=== PATIENT | male | born 1945 | race Caucasian/White ===

== ENCOUNTER 2017-11-10 16:34 | Outpatient (CLI) | payer BC ==
[2017-11-10 17:04] LABS: Hemoglobin 14.7 g/dL (14.0-18.0); Mean Corpuscular HGB CONC 34.5 g/dL (32.0-36.0); Mean Corpuscular Hemoglobin 30.6 pg (27.0-31.0); Mean Corpuscular Volume 88.9 fL (78.0-98.0); Mean Platelet Volume 6.6 fL (7.4-10.4); Platelet Count 187 thou/uL (130-400); RBC Distribution Width 11.5 % (11.5-14.5); Red Blood Cell (RBC) Count 4.81 mill/uL (4.70-6.10); White Blood Cell (WBC) Count 6.9 thou/uL (4.8-10.8)
[2017-11-10 17:10] LABS: INR-International Normal Ratio 1.2; PTT 37.7 SEC (22.9-36.1); Prothrombin Time 14.8 SEC (12.0-14.7)
[2017-11-10 17:22] LABS: Anion Gap 10 mmol/L (10-20); BUN (Urea Nitrogen) 19 mg/dL (8.4-25.7); Calc. Creatinine Clearance 0 mL/min (70-130); Calcium 9.1 mg/dL (7.8-10.44); Carbon Dioxide 29 mmol/L (23-31); Chloride 104 mmol/L (98-107); Estimated GFR-MDRD 62; Glucose 103 mg/dL (83-110); Potassium 4.5 mmol/L (3.5-5.1); Sodium 138 mmol/L (136-145)
[2017-11-13 15:22] LABS: ALT (SGPT) 44 U/L (8-55); AST (SGOT) 36 U/L (5-34); Albumin 4.2 g/dL (3.4-4.8); Alkaline Phosphatase 94 U/L (40-150); Bilirubin, Total 2.3 mg/dL (0.2-1.2); Globulin 3.1 g/dL (2.4-3.5); Protein, Total 7.3 g/dL (5.8-8.1)
== END 2017-11-10 16:35 | disposition home or self-care (01) ==
LOC: LABBT 16:34
PROVIDERS: ATTEND Internal Medicine Cardiovascular Disease
DX: Z01.818 Encounter for other preprocedural examination (principal); I47.2 Ventricular tachycardia
CPT/HCPCS: 80048; 80053; 85027; 85610; 85730; 93005; 93010

== ENCOUNTER → 2017-11-14 | Day surgery (SDC) | payer BC ==
[2017-11-10 17:11] VITALS: BMI 24.0
[~2017-11-14] MED LIST: Diazepam 5 MG TAB ONE; Heparin 10,000 UNITS/1 ML VIAL ONE; Iopamidol 370 76% 100 ML VIAL ONE; Lidocaine 1% (PF) 30 ML VIAL ONE; Nitroglycerin 100MG/250ML BOT 250 ML ONE; Verapamil 5 MG/2 ML VIAL ONE
== END ==
LOC: CCL 06:25
PROVIDERS: ATTEND Internal Medicine Cardiovascular Disease
PROC: 4A023N7 Measurement of Cardiac Sampling and Pressure, Left Heart, Percutaneous Approach (ICD-10-PCS; principal; 2017-11-14)
PROC: B2111ZZ Fluoroscopy of Multiple Coronary Arteries using Low Osmolar Contrast (ICD-10-PCS; principal; 2017-11-14)
DX: I25.10 Atherosclerotic heart disease of native coronary artery without angina pectoris (principal); I47.2 Ventricular tachycardia; I48.0 Paroxysmal atrial fibrillation; Z79.82 Long term (current) use of aspirin; Z79.01 Long term (current) use of anticoagulants; Z79.899 Other long term (current) drug therapy
CPT/HCPCS: 93458; C1769; J1644; J2001

== ENCOUNTER 2018-03-15 15:06 | Outpatient (CLI) | payer BC ==
--- NOTE | 2018-03-15 15:33 | ULT ---
SOFT TISSUE NECK ULTRASOUND: HISTORY: Right neck mass. COMPARISON: None. TECHNIQUE: Targeted sonographic imaging of a palpable right neck mass is performed. FINDINGS: There is evidence of solid echotexture mass with vascular flow, measuring 1.9 x 4.2 x 2.9 cm. An enl arged, possibly partially necrotic lymph node is suspected. Evaluation is limited and incomplete. P ostcontrast neck CT is recommended. IMPRESSION: Palpable soft tissue neck lymph node. Postcontrast soft tissue neck CT is recommended to evaluate th e aerodigestive tract and to assess for possible other enlarged lymph nodes. POS: KEVIN
== END 2018-03-15 15:07 | disposition home or self-care (01) ==
LOC: BICULT 15:06
PROVIDERS: ATTEND Nurse Practitioner Family
DX: R22.1 Localized swelling, mass and lump, neck (principal)
CPT/HCPCS: 76536

== ENCOUNTER 2018-04-16 07:23 | Outpatient (CLI) | payer BC, MEDICARE ==
--- NOTE | 2018-04-16 11:01 | CT ---
CT OF THE NECK: DATE: 04/16/2018. HISTORY: Persistent lymphadenopathy in the right neck. TECHNIQUE: Axial CT imaging at 2.5 mm intervals from the skull base through the lung apices with IV contrast. C oronal and sagittal reformatted imaging obtained. FINDINGS: Imaged brain parenchyma grossly unremarkable. The retroantral fat and the parapharyngeal fat appears clear bilaterally. The imaged lung apices appear grossly unremarkable. The retroantral fat and the parapharyngeal fat appears clear bilaterally. There is mild mucosal thic kening involving he posterior aspect of the right maxillary sinus. Streak artifact from dental amalgam limits detailed assessment of the oral cavity. The submandibular glands and the parotid glands appear unremarkable. Enlarged posterior triangle lymph nodes are noted on the right measuring up to 1 cm with central hypo density suggesting necrotic malignant adenopathy. There is an abnormal enlarged node within level II A on the right best seen on axial image 35 measuring 2.1 cm in short axis dimension inseparable from the adjacent sternocleidomastoid muscle. Along its inferior margin, there is hypodensity best seen o n image 44 suggesting necrotic adenopathy in this region as well. There is an additional abnormal no de posterior to the sternocleidomastoid muscle on the right and anterior to the internal jugular vein measuring 9 mm best seen on image 54 at the axial level of the cricoid cartilage. NO definite adeno kenny is seen on the left. The tonsillar pillars, epiglottis, and preepiglottic fat and hyoid bone appear unremarkable. There is a soft tissue mass with epicenter at axial level of cricoid cartilage located to the right o f midline measuring at least 3.4 cm in AP dimension and approximately 2.6 cm in transverse dimension. This involves the periglottic fat on the right and is seen to above the medial aspect of the tech intern ior aspect of the right thyroid cartilage. This lesion abuts the anterior, posterior, and lateral as pect of the cricoid cartilage on the right as well. It also extends along the posterior and just lat eral to the posterior aspect of the right thyroid cartilage. This mass appears to extend below the a xial level of the cricoid cartilage on image 59 and its superior extent involves the region of the pi riform sinus on the right. There is associated slight deviation of the right false cord medially. T his is highly suspicious for squamous cell carcinoma. The vascular structures of the neck appear patent. Osseous structures demonstrate degenerative change at the atlantoaxial interspace as well as the C5-6 and C6-7 levels. No worrisome lytic or blastic bone lesion. IMPRESSION: Soft tissue mass on the right involving the region of the piriform sinus, periglottic fat, and soft t issues about the right aspect of the cricoid cartilage and thyroid cartilage extending below the axia l level of the cricoid cartilage posteriorly suggesting extensive squamous cell carcinoma, measuremen ts estimated at 3.4 cm AP dimension, 2.7 cm transverse dimension, and 4.7 cm craniocaudal dimension. Multiple enlarged nodes within the neck on the right, some of which demonstrate necrosis consistent with right-sided metastatic neck adenopathy. CODE T POS: KEVIN
[2018-04-16] MEDS ORDERED: Iopamidol 370 76% 100 ML VIAL ONE (11:17)
== END 2018-04-16 07:24 | disposition home or self-care (01) ==
LOC: CT 07:23
PROVIDERS: ATTEND Internal Medicine Geriatric Medicine
DX: R22.1 Localized swelling, mass and lump, neck (principal)
CPT/HCPCS: 70491

== ENCOUNTER 2018-04-26 11:18 | Outpatient (CLI) | payer MEDICARE, BC ==
--- NOTE | 2018-04-26 14:57 | PET ---
NUCLEAR MEDICINE FDG PET CT: (Positron Emission Tomography) DATE: 04/26/2018. HISTORY: A 73-year-old male with head and neck cancer for initial staging. 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 Initial staging. COMPARISON: No prior PET scans. TECHNIQUE: IV injection F-18 Fluorodeoxyglucose (FDG) dose: 11.8 mCi. PET and attenuation-correction CT performed from upper head to proximal thighs. Close-up PET-CT fusio n images of head and neck. Standard PET-CT fusion images of the rest of the body. FINDINGS: SUV (standard uptake value) numbers given are maximum SUV's: QCLR used to obtain SUV. The SUVs obtai hola from the neck pathology are obtained from the close-up images of the neck (different SUV measurem ents are obtained for the neck lesions if the whole body PET scan images are used. The large mass in the right hypopharynx, involving right piriform sinus, right posterior pharyngeal w all, and right post-cricoid region, has very high uptake, with SUV of 12.8. The very large right level IIA malignant lymph node: SUV 13.6. Directly posterior to that, there are 2 much smaller, mildly enlarged necrotic retrojugular level II lymph nodes. The more anterior one: SUV 5.1. The more posterior one SUV 4.1. More inferiorly, abutting the anterior surface of the right internal jugular vein, abutting medial as pect of right sternocleidomastoid muscle, and abutting the lateral aspect of the main tumor mass, a r ight level II lymph node: SUV 7.6. There is no abnormal hypermetabolic activity in the abdominal cavity, thoracic cavity, or pelvic cavi ty. TNM staging: The primary tumor is approximately 3.5 x 2.5 cm on the axial images, but the craniocaudal dimension i s slightly greater than 4.5 cm. It has grown outside of the hypopharynx, and it involves the right ph aryngeal constrictor muscles and possibly cricopharyngeus muscle: T4a. More than one right-sided pathological lymph node: N2. No distant metastasis: M0. IMPRESSION: 1. 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 2. Stage LULY: T4a, N2, M0. JN R POS: KEVIN
== END 2018-04-26 11:19 | disposition home or self-care (01) ==
LOC: PET 11:18
PROVIDERS: ATTEND Internal Medicine Medical Oncology
DX: C76.0 Malignant neoplasm of head, face and neck (principal); C13.9 Malignant neoplasm of hypopharynx, unspecified; C77.0 Secondary and unspecified malignant neoplasm of lymph nodes of head, face and neck
CPT/HCPCS: 78815; A9552

== ENCOUNTER 2018-05-14 10:26 | Observation (INO) | payer BC, MEDICARE ==
[2018-05-14] MEDS ORDERED: Promethazine HCl 25 MG/ML VIAL SLOW IVP PRN (12:24)
[2018-05-14] MEDS ORDERED: Ondansetron HCl/PF 4 MG/2 ML Vial IVP PRN (12:24)
[2018-05-14] MEDS ORDERED: Promethazine HCl 25 MG/ML VIAL IM PRN (12:24)
--- NOTE | 2018-05-14 13:55 | OP ---
DATE OF PROCEDURE: 05/14/2018 PREOPERATIVE DIAGNOSES: 1. Oropharyngeal dysphagia. 2. Head and neck cancer. DESCRIPTION OF PROCEDURE: Forward viewing endoscope was inserted into esophagus under direct visualization with ease and passed to the second portion of the duodenum with ease. Second portion duodenum and duodenal bulb were normal. The pylorus, antrum, body, fundus, and cardia were normal. Retroflexion in stomach was normal. In the proximal esophagus, changes were noted secondary to his head and neck cancer with partial obstruction. Area was prepped and draped in the usual manner. Anesthesia was applied with 1% lidocaine without epinephrine. A needle was inserted through the abdominal wall and a guidewire was passed. The guidewire was passed, snared, and brought out of the mouth. The PEG tube was attached and brought through the abdominal wall after small incision was made. Re-insertion of the endoscope showed the PEG bumper to be in good position. ASSESSMENT: 1. Successful percutaneous endoscopic gastrostomy. 2. Partial obstruction at the proximal esophagus secondary to head and neck cancer. RECOMMENDATIONS: 1. Admit for 23 hour observation. 2. Begin tube feedings in 8 hours. Job ID: [id number]
[2018-05-14] MEDS ORDERED: Melatonin 3 MG TAB PO PRN (14:47)
[2018-05-14] MEDS ORDERED: risperiDONE 0.25 MG TAB PO PRN (14:53)
[2018-05-14] MEDS ORDERED: traMADol HCl 50 MG TAB PER TUBE PRN (14:55)
[2018-05-14] MEDS: Sodium Chloride 0.9% 1,000 ML IV SCH (15:11)
[2018-05-14 16:09] VITALS: BMI 24.3
[2018-05-14] MEDS ORDERED: Lidocaine 1% PF 5 ML VIAL ONE (16:47)
[2018-05-14] MEDS ORDERED: PROPOFOL 200 MG/20 ML VIAL ONE (16:47)
[2018-05-14] MEDS: Famotidine 20 MG TAB PO SCH (20:51)
[2018-05-14] MEDS ORDERED: risperiDONE 1 MG TAB PO SCH (21:00)
[2018-05-15] MEDS: Sodium Chloride 0.9% 1,000 ML IV SCH (04:39)
[2018-05-15] MEDS: Famotidine 20 MG TAB PO SCH (08:01)
[2018-05-15] MEDS ORDERED: risperiDONE 0.25 MG TAB PO SCH (09:00)
[2018-05-15] MEDS ORDERED: Rosuvastatin 5 MG TAB PO SCH (09:00)
[2018-05-15] MEDS ORDERED: Apixaban 5 MG TAB PO SCH (09:00)
[2018-05-15] MEDS ORDERED: Vit A,C & E/Lutein/Minerals Tablet PO SCH (09:00)
[2018-05-15 11:28] VITALS: BP 123/68; TEMP 98.4
== END 2018-05-15 13:11 | disposition home or self-care (01) ==
LOC: SDC 10:26 → T4-B 14:25
PROVIDERS: ADMIT Internal Medicine Gastroenterology; ATTEND Internal Medicine Gastroenterology
PROC: 0DH63UZ Insertion of Feeding Device into Stomach, Percutaneous Approach (ICD-10-PCS; principal; 2018-05-15)
DX: C76.0 Malignant neoplasm of head, face and neck (principal); K22.2 Esophageal obstruction; Z79.01 Long term (current) use of anticoagulants; Z79.899 Other long term (current) drug therapy
CPT/HCPCS: 96360; 96361; G0378; J2001; J2704

== ENCOUNTER 2018-08-28 11:15 | Outpatient (CLI) | payer BC, MEDICARE ==
--- NOTE | 2018-08-28 18:38 | PET ---
PET CT: 08/28/18 HISTORY: 73-year-old male with head and neck cancer. 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 Patient is status post chemo and radiation therapy on July 2018. Exam is requested for restaging. TECHNIQUE: PET scan with CT attenuation was performed from the vertex through the proximal thighs following intr avenous administration of 11.7 millicuries of [id number] in the right antecubital fossa. COMPARISON: 04/26/18. FINDINGS: Abnormal area of tracer localization noted on the previous exam have resolved in the interim. No hypermetabolic mass or lymph node is seen in the head or neck. There is a hypermetabolic lymph node in the AP window of the mediastinum with an SUV of 3. No hypermetabolic hilar, axillary, abdominal pelvic, or inguinal lymph nodes are seen. No hypermetabo lic pulmonary nodules, liver, adrenal, or skeletal lesions are seen. There is physiologic activity in the GI and tracts and the brain. The CT scan used for attenuation correction demonstrates no evidence of pleural effusions or ascites. IMPRESSION: 1. Interval resolution of previously noted lesions since 04/26/18. 2. Interval development of a new hypermetabolic mediastinal lymph node (A-P window). POS: KEVIN
== END 2018-08-28 11:16 | disposition home or self-care (01) ==
LOC: PET 11:15
PROVIDERS: ATTEND Internal Medicine Hematology & Oncology
DX: C76.0 Malignant neoplasm of head, face and neck (principal); R59.0 Localized enlarged lymph nodes
CPT/HCPCS: 78815; A9552

== ENCOUNTER 2018-12-24 07:29 | Outpatient (CLI) | payer BC, MEDICARE ==
--- NOTE | 2018-12-24 08:41 | CT ---
CT Chest W Con: 12/24/2018 12:00 AM CLINICAL INDICATION: History of hypopharyngeal cancer. COMPARISON: PET/CT dated August 28, 2018 and April 26, 2018. FINDINGS: Lung and Large Airways: There are persistent areas of tree-in-bud type nodularity involving the lingu la. This is slightly more pronounced than on the recent PET/CT dated 08/20/2018 but appear appears similar to a comparison dated April 26, 2018. There are areas of subsegmental volume loss involving both lower lobes. There is a tiny sub-4 mm, subpleural pulmonary nodule involving the right lung apex on image 13 of series 3. Pleura: No effusion or mass. Vessels: There are prominent coronary artery calcifications. Heart: Normal appearing. No pericardial effusion.. Mediastinum and Teresa: No pathologically enlarged mediastinal or hilar lymph node is evident. No abnor ld sized lymph node is seen within the region of the AP window. Some of the increased activity that was noted within this region on the prior PET/CT may related to misregistration from vascular ba ckground activity. Chest Wall and Lower Neck: Normal. Upper Abdomen: The gallbladder is surgically absent. There are calcified granuloma within the spleen. The adrenal glands are normal appearing. Bones: No acute fracture or subluxation demonstrated. There is scattered degenerative and osteoarthri tic change present. IMPRESSION: Persistent region of tree-in-bud type nodularity involving the lingula. This appears similar to a com parison in April 2018 and is suspicious for bronchiolitis of infectious or inflammatory etiology. Would recommend follow-up CT in 6-8 weeks to document stability or clearance. Previously seen hypermetabolic mediastinal lymph node in the AP window is not [facility]. This activity may have reflected misregistration of radiotracer from vascular background activity. Follow-up examination in 6-8 weeks to reevaluate for mediastinal lymphadenopathy is recommended as a conservative measure.
--- NOTE | 2018-12-24 09:05 | CT ---
NECK CT WITH IV CONTRAST: DATE: 12/24/2018. COMPARISON: PET CT 08/28/2018, neck CT with IV contrast 04/16/2018. HISTORY: Hypopharyngeal carcinoma. TECHNIQUE: Axial CT imaging obtained at 3 mm intervals from skull base through lung apices with IV contrast. Cor onal and sagittal reformatted imaging obtained. FINDINGS: Visualized brain parenchyma grossly unremarkable. The retroantral fat and parapharyngeal fat is clear bilaterally. The parotid glands and the submandibular glands appear unremarkable. Tonsillar pillars appear grossly unremarkable. The epiglottis and the preepiglottic fat demonstrates no mass lesion. There is mild stranding of the preepiglottic fat which is likely on the basis of prior treatment. The hyoid bone, thyroid cartilage and cricoid cartilage demonstrate no evidence for destruction. The thyroid gland is grossly unremarkable. The lobulated soft tissue mass noted on prior imaging centered at the axial level of the cricoid cart ilage interposed between the right aspect of the thyroid cartilage and cricoid cartilage, best seen on the 04/16/2018 exam, cannot be discretely visualized on this study. There is no discrete measurable mass lesion in this region on today's exam. There is mild medialization of the right vocal cord, as seen on the 08/28/[address] There is mild increased density and fullness in the region of the pi riform sinus on the right with no discrete mass lesion suggesting possible edema on the basis of prior treatment. No discrete lymphadenopathy is apparent on this examination within the neck. There is mild diffuse in creased density within the subcutaneous fat of the neck on the right, likely on the basis of prior treatment. There is subtle soft tissue density posterior to the superior aspect of the submandibular gland on th e right, best seen on axial image 23, measuring approximately 9 mm in transverse dimension, suggesting a treated metastatic lymph node. Review of the osseous structures demonstrates no worrisome lytic or blastic lesion. IMPRESSION: Posttreatment changes on the right. No discrete mass lesion is noted on this examination and no enlar ged lymph nodes are seen. Continued follow-up advised. Transcribed Date/Time: 12/24/2018 10:22 AM
[2018-12-24] MEDS ORDERED: ISOVUE-370 76%-LOCM 1 ML ONE (12:58)
== END 2018-12-24 07:30 | disposition home or self-care (01) ==
LOC: BICCT 07:29
PROVIDERS: ATTEND Internal Medicine Hematology & Oncology
DX: C13.8 Malignant neoplasm of overlapping sites of hypopharynx (principal); R91.8 Other nonspecific abnormal finding of lung field
CPT/HCPCS: 70491; 71260; 82565; Q9966

== ENCOUNTER 2023-01-12 08:26 | Outpatient (CLI) | payer MEDICARE | END 2023-01-12 08:27 | disposition home or self-care (01) | LOC: NM 08:26 | PROVIDERS: ATTEND Psychiatry & Neurology Neurology | DX: F02.80 Dementia in other diseases classified elsewhere, unspecified severity, without behavioral disturbance, psychotic disturbance, mood disturbance, and anxiety (principal); R90.82 White matter disease, unspecified; H74.8X3 Other specified disorders of middle ear and mastoid, bilateral; H74.8X1 Other specified disorders of right middle ear and mastoid; G93.89 Other specified disorders of brain | CPT/HCPCS: 70551; 78803; A9584 ×2 ==

== ENCOUNTER 2024-01-04 13:17 | Outpatient (CLI) | payer MEDICARE | END 2024-01-04 13:18 | disposition home or self-care (01) | LOC: CT 13:17 | PROVIDERS: ATTEND Psychiatry & Neurology Neurology | DX: G93.89 Other specified disorders of brain (principal); G31.9 Degenerative disease of nervous system, unspecified; I67.82 Cerebral ischemia; R90.89 Other abnormal findings on diagnostic imaging of central nervous system; J34.89 Other specified disorders of nose and nasal sinuses; I99.8 Other disorder of circulatory system | CPT/HCPCS: 70450 ==

== ENCOUNTER 2024-11-01 18:27 | Inpatient (IN) | payer MEDICARE ==
[2024-11-01 19:12] LABS: #Basophils 0.05 10x3/uL (0.0-0.2); #Eosinophils 0.05 10x3/uL (0.0-0.7); #Monocytes 0.92 10x3/uL (0.11-0.59); #Neutrophils 10.93 10x3/uL (1.40-6.50); %Basophils 0.4 % (0.0-1.0); %Eosinophils 0.4 % (0.0-10.0); %Lymphocytes 10.7 % (21.0-51.0); %Monocytes 6.9 % (0.0-10.0); %Neutrophils 81.3 % (42.0-75.0); Hematocrit 39.2 % (42.0-52.0); Hemoglobin 13.2 g/dL (14.0-18.0); Mean Corpuscular Hemoglobin 30.5 pg (27.0-31.0); Mean Corpuscular Volume 90.5 fL (78.0-98.0); Platelet Count 519 10x3/uL (130-400); Red Blood Cell (RBC) Count 4.33 mill/uL (4.70-6.10); White Blood Cell (WBC) Count 13.42 10x3/uL (4.8-10.8)
[2024-11-01 19:35] LABS: ALT (SGPT) 190 U/L (Less than 45); AST (SGOT) 160 U/L (11-34); Albumin 3.2 g/dL (3.1-4.5); Alkaline Phosphatase 215 U/L (40-110); Anion Gap 21 mmol/L (10-20); BUN (Urea Nitrogen) 14 mg/dL (8.4-25.7); Bilirubin, Total 0.7 mg/dL (0.3-1.2); Calc. Creatinine Clearance 0 mL/min (70-130); Calcium 8.6 mg/dL (7.8-10.44); Carbon Dioxide 19 mmol/L (23-31); Chloride 101 mmol/L (98-107); Globulin 4.4 g/dL (2.4-3.5); Glucose 113 mg/dL (83-110); Lipase 22 U/L (8-78); Magnesium 1.9 mg/dL (1.6-2.6); Potassium 4.3 mmol/L (3.5-5.1); Sodium 137 mmol/L (136-145)
[2024-11-01 19:43] LABS: Troponin I Less than 0.010 ng/mL (< 0.028)
[2024-11-01 22:51] LABS: Bacteria/HPF None Seen HPF (None Seen); CAUTI Indications for Culture Alt mental st,lethar; Glucose, Urine (Dipstick) Normal (Negative); Leukocyte Negative Leu/uL (Negative); Protein, Urine (Dipstick) 10 mg/dL (Neg-Trace); RBC/HPF 0-3 HPF (0-3); Specific Gravity, Urine 1.018 (1.002-1.036); WBC/HPF 0-3 HPF (0-3)
[2024-11-01 22:52] LABS: Urine Culture Reflex No No
[2024-11-01] MEDS ORDERED: Senokot S 8.6-50 MG TAB PO PRN (23:29)
[2024-11-01] MEDS ORDERED: Calcium Carbonate 500 MG ChewTAB PO PRN (23:29)
[2024-11-01] MEDS ORDERED: Ondansetron PF 4 MG/2 ML Vial IVP PRN (23:29)
[2024-11-01] MEDS ORDERED: Acetaminophen 325 MG TAB PO PRN (23:29)
[2024-11-01] MEDS ORDERED: Electrolyte Replacement Protocol 1 EACH FS SCH (23:30)
[2024-11-02] MEDS ORDERED: risperiDONE 1 MG TAB ONE (01:00)
[2024-11-02] MEDS: risperiDONE 1 MG TAB PO SCH ×2 (01:07→20:33)
[2024-11-02] MEDS: QUEtiapine 100 MG TAB PO SCH (01:36)
[2024-11-02] MEDS ORDERED: Digoxin 0.5 MG/2 ML AMP ONE ×2 (01:54→03:02)
[2024-11-02] MEDS: Digoxin 0.5 MG/2 ML AMP SLOW IVP SCH ×2 (02:06→03:10)
[2024-11-02 04:02] LABS: #Basophils 0.03 10x3/uL (0.0-0.2); #Eosinophils 0.05 10x3/uL (0.0-0.7); #Monocytes 0.96 10x3/uL (0.11-0.59); #Neutrophils 9.69 10x3/uL (1.40-6.50); %Basophils 0.2 % (0.0-1.0); %Eosinophils 0.4 % (0.0-10.0); %Lymphocytes 11.4 % (21.0-51.0); %Monocytes 7.9 % (0.0-10.0); %Neutrophils 79.6 % (42.0-75.0); Hematocrit 36.8 % (42.0-52.0); Hemoglobin 12.5 g/dL (14.0-18.0); Mean Corpuscular Hemoglobin 30.5 pg (27.0-31.0); Mean Corpuscular Volume 89.8 fL (78.0-98.0); Platelet Count 359 10x3/uL (130-400); Red Blood Cell (RBC) Count 4.10 mill/uL (4.70-6.10); White Blood Cell (WBC) Count 12.18 10x3/uL (4.8-10.8)
[2024-11-02 04:17] LABS: ALT (SGPT) 155 U/L (Less than 45); AST (SGOT) 105 U/L (11-34); Albumin 2.9 g/dL (3.1-4.5); Alkaline Phosphatase 197 U/L (40-110); Anion Gap 16 mmol/L (10-20); BUN (Urea Nitrogen) 14 mg/dL (8.4-25.7); Bilirubin, Total 0.9 mg/dL (0.3-1.2); CK (CPK) 74 U/L (30-200); Calc. Creatinine Clearance 92 mL/min (70-130); Calcium 8.3 mg/dL (7.8-10.44); Carbon Dioxide 24 mmol/L (23-31); Cardiac Risk 4.0 (Less than 4.5); Chloride 104 mmol/L (98-107); Cholesterol 95 mg/dl (< 200 Desired); Globulin 4.1 g/dL (2.4-3.5); Glucose 123 mg/dL (83-110); HDL Cholesterol 24 mg/dL (>60 Neg Risk); LDL Cholesterol, Calculated 54 mg/dL; Magnesium 2.0 mg/dL (1.6-2.6); Potassium 4.2 mmol/L (3.5-5.1); Sodium 140 mmol/L (136-145); Triglycerides 87 mg/dL (Less than 150)
[2024-11-02] MEDS ORDERED: risperiDONE 1 MG TAB PO SCH (09:00)
[2024-11-02] MEDS ORDERED: Aspirin Chewable 81 MG TAB ONE (09:03)
[2024-11-02] MEDS ORDERED: Apixaban 5 MG TAB ONE (09:03)
[2024-11-02] MEDS ORDERED: Magnesium 2 GM/50 ML BAG (IN WATER) ONE (09:03)
[2024-11-02] MEDS: Aspirin 81 mg Enteric Coated Tablet PO SCH (09:09)
[2024-11-02] MEDS: Apixaban 5 MG TAB PO SCH (09:09)
[2024-11-02] MEDS: Metoprolol Succinate XL 50 MG ER.TAB PO SCH (09:09)
[2024-11-02] MEDS: Magnesium 2 GM/50 ML(in water) 2 GM in Premix 1 BAG IVPB SCH (09:09)
[2024-11-02 18:46] VITALS: BMI 21.2
[2024-11-02] MEDS ORDERED: QUEtiapine 100 MG TAB PO SCH (21:00)
[2024-11-03 04:03] LABS: #Basophils 0.03 10x3/uL (0.0-0.2); #Eosinophils 0.14 10x3/uL (0.0-0.7); #Monocytes 0.95 10x3/uL (0.11-0.59); #Neutrophils 9.29 10x3/uL (1.40-6.50); %Basophils 0.3 % (0.0-1.0); %Eosinophils 1.2 % (0.0-10.0); %Lymphocytes 10.2 % (21.0-51.0); %Monocytes 8.2 % (0.0-10.0); %Neutrophils 79.7 % (42.0-75.0); Hematocrit 34.9 % (42.0-52.0); Hemoglobin 11.7 g/dL (14.0-18.0); Mean Corpuscular Hemoglobin 30.8 pg (27.0-31.0); Mean Corpuscular Volume 91.8 fL (78.0-98.0); Platelet Count 372 10x3/uL (130-400); Red Blood Cell (RBC) Count 3.80 mill/uL (4.70-6.10); White Blood Cell (WBC) Count 11.65 10x3/uL (4.8-10.8)
[2024-11-03 04:21] LABS: ALT (SGPT) 130 U/L (Less than 45); AST (SGOT) 84 U/L (11-34); Albumin 2.6 g/dL (3.1-4.5); Alkaline Phosphatase 180 U/L (40-110); Anion Gap 14 mmol/L (10-20); BUN (Urea Nitrogen) 10 mg/dL (8.4-25.7); Bilirubin, Total 0.8 mg/dL (0.3-1.2); Calc. Creatinine Clearance 79 mL/min (70-130); Calcium 7.9 mg/dL (7.8-10.44); Carbon Dioxide 25 mmol/L (23-31); Chloride 104 mmol/L (98-107); Globulin 3.8 g/dL (2.4-3.5); Glucose 123 mg/dL (83-110); Magnesium 2.0 mg/dL (1.6-2.6); Potassium 4.2 mmol/L (3.5-5.1); Sodium 139 mmol/L (136-145)
[2024-11-03] MEDS: Magnesium 2 GM/50 ML(in water) 2 GM in Premix 1 BAG IVPB SCH (11:45)
[2024-11-04 04:39] LABS: #Basophils 0.03 10x3/uL (0.0-0.2); #Eosinophils 0.20 10x3/uL (0.0-0.7); #Monocytes 0.78 10x3/uL (0.11-0.59); #Neutrophils 6.95 10x3/uL (1.40-6.50); %Basophils 0.3 % (0.0-1.0); %Eosinophils 2.2 % (0.0-10.0); %Lymphocytes 10.4 % (21.0-51.0); %Monocytes 8.7 % (0.0-10.0); %Neutrophils 78.0 % (42.0-75.0); Hematocrit 32.1 % (42.0-52.0); Hemoglobin 10.7 g/dL (14.0-18.0); Mean Corpuscular Hemoglobin 30.6 pg (27.0-31.0); Mean Corpuscular Volume 91.7 fL (78.0-98.0); Platelet Count 359 10x3/uL (130-400); Red Blood Cell (RBC) Count 3.50 mill/uL (4.70-6.10); White Blood Cell (WBC) Count 8.93 10x3/uL (4.8-10.8)
[2024-11-04 04:53] LABS: ALT (SGPT) 125 U/L (Less than 45); AST (SGOT) 87 U/L (11-34); Albumin 2.5 g/dL (3.1-4.5); Alkaline Phosphatase 169 U/L (40-110); Bilirubin, Direct 0.3 mg/dL (0.1-0.3); Bilirubin, Total 0.6 mg/dL (0.3-1.2); Magnesium 2.1 mg/dL (1.6-2.6)
[2024-11-04] MEDS: QUEtiapine 25 MG TAB PO SCH (20:28)
[2024-11-05 04:04] LABS: #Basophils Less than 0.03 10x3/uL (0.0-0.2); #Eosinophils 0.23 10x3/uL (0.0-0.7); #Monocytes 0.72 10x3/uL (0.11-0.59); #Neutrophils 5.90 10x3/uL (1.40-6.50); %Basophils 0.2 % (0.0-1.0); %Eosinophils 2.9 % (0.0-10.0); %Lymphocytes 13.6 % (21.0-51.0); %Monocytes 9.0 % (0.0-10.0); %Neutrophils 73.7 % (42.0-75.0); Hematocrit 33.3 % (42.0-52.0); Hemoglobin 11.3 g/dL (14.0-18.0); Mean Corpuscular Hemoglobin 30.5 pg (27.0-31.0); Mean Corpuscular Volume 89.8 fL (78.0-98.0); Platelet Count 346 10x3/uL (130-400); Red Blood Cell (RBC) Count 3.71 mill/uL (4.70-6.10); White Blood Cell (WBC) Count 8.01 10x3/uL (4.8-10.8)
[2024-11-05 04:26] LABS: Anion Gap 10 mmol/L (10-20); BUN (Urea Nitrogen) 6 mg/dL (8.4-25.7); Calc. Creatinine Clearance 86 mL/min (70-130); Calcium 8.0 mg/dL (7.8-10.44); Carbon Dioxide 26 mmol/L (23-31); Chloride 106 mmol/L (98-107); Glucose 103 mg/dL (83-110); Potassium 3.8 mmol/L (3.5-5.1); Sodium 138 mmol/L (136-145)
[2024-11-05] MEDS ORDERED: Amiodarone 200 MG TAB PO SCH (09:00)
[2024-11-05] MEDS ORDERED: Lidocaine Viscous Sol 2% 15 ml UD Cup SSP PRN (12:03)
[2024-11-05] MEDS ORDERED: MAGIC MOUTHWASH 10 ML, Compounding Fee 1 SSW PRN (12:15)
[2024-11-05] MEDS: Lidocaine 10 ML, Aluminum & Magnesium Hydroxide 30 ML SSW PRN (13:49)
[2024-11-05] MEDS: dilTIAZem 25 MG/5 ML VIAL SLOW IVP SCH (17:12)
[2024-11-05] MEDS: Diltiazem HCl/D5W 125 MG in Premix 1 BAG IVPB SCH (17:56)
[2024-11-05] MEDS: diphenhydrAMINE 25 MG CAP PO SCH (19:51)
[2024-11-06] MEDS: Diltiazem HCl/D5W 125 MG in Premix 1 BAG IVPB SCH ×2 (00:20→18:39)
[2024-11-06 04:08] LABS: #Basophils Less than 0.03 10x3/uL (0.0-0.2); #Eosinophils 0.26 10x3/uL (0.0-0.7); #Monocytes 0.67 10x3/uL (0.11-0.59); #Neutrophils 5.15 10x3/uL (1.40-6.50); %Basophils 0.3 % (0.0-1.0); %Eosinophils 3.8 % (0.0-10.0); %Lymphocytes 11.3 % (21.0-51.0); %Monocytes 9.7 % (0.0-10.0); %Neutrophils 74.6 % (42.0-75.0); Hematocrit 36.1 % (42.0-52.0); Hemoglobin 12.1 g/dL (14.0-18.0); Mean Corpuscular Hemoglobin 30.6 pg (27.0-31.0); Mean Corpuscular Volume 91.2 fL (78.0-98.0); Platelet Count 362 10x3/uL (130-400); Red Blood Cell (RBC) Count 3.96 mill/uL (4.70-6.10); White Blood Cell (WBC) Count 6.90 10x3/uL (4.8-10.8)
[2024-11-06 04:15] LABS: Anion Gap 12 mmol/L (10-20); BUN (Urea Nitrogen) 5 mg/dL (8.4-25.7); Calc. Creatinine Clearance 94 mL/min (70-130); Calcium 8.0 mg/dL (7.8-10.44); Carbon Dioxide 25 mmol/L (23-31); Chloride 105 mmol/L (98-107); Glucose 109 mg/dL (83-110); Potassium 3.8 mmol/L (3.5-5.1); Sodium 138 mmol/L (136-145)
[2024-11-06] MEDS: Aspirin Chewable 81 MG TAB PO SCH (10:21)
[2024-11-06] MEDS ORDERED: diphenhydrAMINE 25 MG CAP PO PRN (13:09)
[2024-11-06 16:06] LABS: ALT (SGPT) 192 U/L (Less than 45); AST (SGOT) 146 U/L (11-34); Albumin 2.8 g/dL (3.1-4.5); Alkaline Phosphatase 206 U/L (40-110); Bilirubin, Direct 0.3 mg/dL (0.1-0.3); Bilirubin, Total 0.5 mg/dL (0.3-1.2); Magnesium 2.1 mg/dL (1.6-2.6)
[2024-11-06] MEDS: dilTIAZem 25 MG/5 ML VIAL SLOW IVP SCH (18:38)
[2024-11-06] MEDS ORDERED: Amiodarone 200 MG TAB PO SCH (21:00)
[2024-11-06] MEDS: QUEtiapine 25 MG TAB PO SCH (21:24)
[2024-11-07] MEDS: QUEtiapine 25 MG TAB PO SCH (03:12)
[2024-11-07] MEDS: Digoxin 0.5 MG/2 ML AMP SLOW IVP SCH (05:05)
[2024-11-07] MEDS: dilTIAZem 30 MG TAB PO SCH (05:05)
[2024-11-07 06:18] LABS: ALT (SGPT) 190 U/L (Less than 45); AST (SGOT) 127 U/L (11-34); Albumin 2.7 g/dL (3.1-4.5); Alkaline Phosphatase 190 U/L (40-110); Anion Gap 11 mmol/L (10-20); BUN (Urea Nitrogen) 7 mg/dL (8.4-25.7); Bilirubin, Total 0.7 mg/dL (0.3-1.2); Calc. Creatinine Clearance 83 mL/min (70-130); Calcium 8.0 mg/dL (7.8-10.44); Carbon Dioxide 25 mmol/L (23-31); Chloride 102 mmol/L (98-107); Globulin 3.7 g/dL (2.4-3.5); Glucose 133 mg/dL (83-110); Potassium 4.2 mmol/L (3.5-5.1); Sodium 134 mmol/L (136-145)
[2024-11-07] MEDS: Enoxaparin 80 MG (0.8 mL) SYRINGE SC SCH (10:25)
[2024-11-07] MEDS: QUEtiapine 100 MG TAB PO SCH (20:00)
[2024-11-08 03:54] LABS: #Basophils 0.03 10x3/uL (0.0-0.2); #Eosinophils 0.26 10x3/uL (0.0-0.7); #Monocytes 0.68 10x3/uL (0.11-0.59); #Neutrophils 8.00 10x3/uL (1.40-6.50); %Basophils 0.3 % (0.0-1.0); %Eosinophils 2.7 % (0.0-10.0); %Lymphocytes 7.8 % (21.0-51.0); %Monocytes 6.9 % (0.0-10.0); %Neutrophils 81.7 % (42.0-75.0); Hematocrit 37.3 % (42.0-52.0); Hemoglobin 12.2 g/dL (14.0-18.0); Mean Corpuscular Hemoglobin 30.3 pg (27.0-31.0); Mean Corpuscular Volume 92.6 fL (78.0-98.0); Platelet Count 297 10x3/uL (130-400); Red Blood Cell (RBC) Count 4.03 mill/uL (4.70-6.10); White Blood Cell (WBC) Count 9.79 10x3/uL (4.8-10.8)
[2024-11-08 04:22] LABS: Anion Gap 10 mmol/L (10-20); BUN (Urea Nitrogen) 8 mg/dL (8.4-25.7); Calc. Creatinine Clearance 83 mL/min (70-130); Calcium 8.0 mg/dL (7.8-10.44); Carbon Dioxide 25 mmol/L (23-31); Chloride 103 mmol/L (98-107); Glucose 123 mg/dL (83-110); Potassium 4.1 mmol/L (3.5-5.1); Sodium 134 mmol/L (136-145)
[2024-11-08] MEDS: Digoxin 0.5 MG/2 ML AMP SLOW IVP SCH (09:03)
[2024-11-08] MEDS: dilTIAZem 30 MG TAB PO SCH (12:18)
[2024-11-08 12:29] VITALS: BP 128/70; TEMP 98.9
== END 2024-11-08 13:50 | disposition hospice, inpatient (51) | DRG 308 ==
LOC: ERS 18:27 → SUATTDRO 18:27 → ERHOLD 23:28 → INTOOBSV 11-02 01:50 → OBSVTOIN 11-02 01:50 → PCU 11-02 15:19 → ERHOLD 11-02 15:19 → UNDODISIN 11-06 17:45 → PCU 11-06 19:43
PROVIDERS: ADMIT Internal Medicine; ATTEND Hospitalist
DX: I48.0 Paroxysmal atrial fibrillation (principal); G93.41 Metabolic encephalopathy; J69.0 Pneumonitis due to inhalation of food and vomit; F05 Delirium due to known physiological condition; F02.811 Dementia in other diseases classified elsewhere, unspecified severity, with agitation; G31.83 Neurocognitive disorder with Lewy bodies; F29 Unspecified psychosis not due to a substance or known physiological condition; E78.5 Hyperlipidemia, unspecified; I10 Essential (primary) hypertension; R74.01 Elevation of levels of liver transaminase levels; Z66 Do not resuscitate; R29.6 Repeated falls; L27.0 Generalized skin eruption due to drugs and medicaments taken internally; R33.8 Other retention of urine; R13.10 Dysphagia, unspecified; Z92.3 Personal history of irradiation; Z98.890 Other specified postprocedural states; Z90.49 Acquired absence of other specified parts of digestive tract; Z79.899 Other long term (current) drug therapy; Z79.01 Long term (current) use of anticoagulants; Z85.819 Personal history of malignant neoplasm of unspecified site of lip, oral cavity, and pharynx; Z91.81 History of falling
CPT/HCPCS: 36415; 70450; 71045; 80048; 80053; 80061; 80076; 81001; 82550; 83605; 83690; 83735; 83880; 84145; 84443; 84484; 85025; 93005; 93306; J0282; J0295; J1160; J1650; J2060; J2185; J3475; J7070; J7120